=== PATIENT | male | born 1940 | race Caucasian/White ===

== ENCOUNTER → 2021-10-15 | Outpatient (CLI) | payer BC ==
[~2021-10-15] MED LIST: ASPIRIN CHEWABL81 MG PO; BENICAR40 MG PO; FLOMAX0.4 MG PO; GLUCOPHAGE500 MG PO; PROTONIX40 MG PO; SYNTHROID112 MCG PO; ZYLOPRIM 300 M300 MG PO
== END ==
LOC: KOH-I 15:15
DX: R31.9 Hematuria, unspecified (principal); N28.9 Disorder of kidney and ureter, unspecified; N13.1 Hydronephrosis with ureteral stricture, not elsewhere classified
CPT/HCPCS: 74176